=== PATIENT | female | born 1950 | race Caucasian/White ===

== ENCOUNTER 2018-02-19 10:06 | Emergency (ER) | payer MEDICARE, OTHER ==
[~2018-02-19] VITALS: Ht 175.3 cm; Wt 108.9 kg
[2018-02-19 10:19] VITALS: BP 132/74
[2018-02-19] MEDS ORDERED: KETOROLAC TROMETH 30 MG/ML 1ML VIAL IM ONE (11:45)
== END 2018-02-19 12:16 | disposition home or self-care (01) ==
LOC: ER 10:06
DX: M23.92 Unspecified internal derangement of left knee (principal); M17.12 Unilateral primary osteoarthritis, left knee; E07.89 Other specified disorders of thyroid
CPT/HCPCS: 73560; 96372; 99283; J1885

== ENCOUNTER 2018-07-25 11:02 | Emergency (ER) | payer MEDICARE ==
[~2018-07-25] VITALS: Ht 170.2 cm; Wt 116.6 kg
[2018-07-25 12:24] LABS: Basophils # (auto) 0.1 uL; Eosinophils # (auto) 0.7 uL; Eosinophils % (auto) 7.4 % (0.0-7.0); Hematocrit 47.4 % (36.0-46.0); Hemoglobin 16.2 g/dL (12.2-16.2); Lymphocytes # (auto) 2.4 uL; Lymphocytes % (auto) 24.3 % (10.0-50.0); Mean Corpuscular Hemoglobin 32.3 pg (28.0-32.0); Mean Corpuscular Hgb Conc. 34.2 g/dL (32.0-36.0); Mean Corpuscular Volume 94.5 fL (80.0-100.0); Monocytes # (auto) 1.2 uL; Monocytes % (auto) 12.7 % (0.0-12.0); Neutrophils # (auto) 5.4 uL; Neutrophils % (auto) 54.6 % (37.0-80.0); Platelet Count (auto) 269 10^3/uL (140-450); Red Blood Cells 5.01 10^6/uL (4.0-5.20); Red Cell Distribution Width 13.6 % (11.8-14.3); White Blood Cell 9.8 10^3/uL (4.4-10.8)
[2018-07-25 12:26] LABS: Urine Bacteria NONE SEEN /hpf (None Seen); Urine Blood Negative /uL (Negative); Urine Mucus FEW (None Seen); Urine Specific Gravity 1.024 (1.001-1.035); Urine WBC 1 /hpf (0 - 5)
[2018-07-25 12:49] LABS: Albumin 3.7 g/dL (3.4-5.0); Calcium 9.6 mg/dL (8.5-10.1); Potassium 3.3 mmol/L (3.5-5.1)
[2018-07-25 12:52] LABS: Bilirubin, Total 0.7 mg/dL (0.2-1.0)
[2018-07-25 14:29] VITALS: BP 126/64
== END 2018-07-25 14:32 | disposition home or self-care (01) ==
LOC: ER 11:04
DX: R10.31 Right lower quadrant pain (principal); R10.32 Left lower quadrant pain; M19.90 Unspecified osteoarthritis, unspecified site; E78.5 Hyperlipidemia, unspecified; I10 Essential (primary) hypertension; E07.9 Disorder of thyroid, unspecified; Z98.51 Tubal ligation status; Z90.49 Acquired absence of other specified parts of digestive tract
CPT/HCPCS: 36415; 74176; 80053; 81001; 82150; 83690; 85025